=== PATIENT | female | born 1950 | race Caucasian/White ===

== ENCOUNTER 2022-12-11 07:12 | Day surgery (SDC) | payer MEDICARE, BC, OTHER ==
[~2022-12-11] VITALS: Ht 160 cm; Wt 77.4 kg
[2022-12-11] VITALS (15 sets, daily range): BP systolic 81–137; BP diastolic 69–106
[~2022-12-11 07:12] MED LIST: CALCIUM 500 MG1 EAC2 PO; CALCIUM 600 +1 EA11 PO; ERGO400 PO; MERIBIN5 MG PO
--- NOTE | 2022-12-11 08:17 | NUR ---
12/11/22 0817 Connie Ruggiero HISTORY, CHART, MEDICATIONS AND ALLERGIES REVIEWED BEFORE START OF PROCEDURE. PATIENT CONFIRMS NPO STATUS AND AGREES WITH SCHEDULED PROCEDURE. 3-LEAD EKG REVIEWED WITH PHYSICIAN PRIOR TO START OF PROCEDURE. MONITOR INTACT WITH CONTINUOUS PULSE OXIMETRY,CAPNOGRAPHY, 3-LEAD EKG, INTERMITTENT BP. SUPPLEMENTAL O2 TO BE TITRATED THROUGHOUT PROCEDURE TO MAINTAIN O2 SATURATION ABOVE 90%. PATIENT DETERMINED TO BE ASA APPROPRIATE FOR PROPOFOL SEDATION PRIOR TO START OF PROCEDURE BY .
--- NOTE | 2022-12-11 08:30 | NUR ---
PT UP IN BED TOLERING PO FLUIDS. REPORT RECIEVED. DR ZAPATA AT BEDSIDE. VSS ON ROOM AIR
--- NOTE | 2022-12-11 08:47 | NUR ---
Patient up to Ambulate independently. Gait steady. Discharge instructions reviewed with patient. Patient verbalizes understanding. Copy given to patient to take home. Discharged via wheelchair to private car for ride home.
== END 2022-12-11 08:53 | disposition home or self-care (01) ==
LOC: ORSCMMR 07:12 → ORD 08:00 → ORSCMMR 08:53
PROVIDERS: Internal Medicine Gastroenterology
PROC: 0DJD8ZZ Inspection of Lower Intestinal Tract, Via Natural or Artificial Opening Endoscopic (ICD-10-PCS; principal; 2022-12-11 08:00)
DX: Z12.11 Encounter for screening for malignant neoplasm of colon (principal); Z80.0 Family history of malignant neoplasm of digestive organs; D12.2 Benign neoplasm of ascending colon; K57.30 Diverticulosis of large intestine without perforation or abscess without bleeding; K63.89 Other specified diseases of intestine
CPT/HCPCS: 88305; J2250; J2704; J7120